=== PATIENT | male | born 2000 | race Caucasian/White ===

== ENCOUNTER → 2023-12-04 08:32 | Outpatient (CLI) | payer OTHER, SELFPAY ==
--- NOTE | 2023-12-04 | DI.MRI.S_ITS ---
PROCEDURE: MR WRIST LT WO CON INDICATIONS: PAIN IN LEFT WRIST TECHNIQUE: Noncontrast coronal proton density fast spin echo and T2 fast spin echo with fat saturation; coronal 3-D gradient echo, axial T1 spin echo and T2 fast spin echo with fat saturation, sagittal T1 spin echo through the wrist. COMPARISON: None. FINDINGS: Image quality: Excellent. Bones and cartilage: The carpal bones are normally aligned. No bone marrow contusions or fractures. No evidence for avascular necrosis. Overlying cartilage surfaces appear normal. Carpal ligaments: The scapholunate and lunotriquetral ligaments appear intact. In the absence of intra-articular contrast, the extrinsic carpal ligaments are not well identified. On sagittal images, the pisohamate ligament appears intact. Triangular fibrocartilage complex: There is large area of increased signal within the central disc (series 7, image 32), which may represent central disc degeneration versus contusion. No tear of the central disc. The ulnar styloid and the fovea attachment is unremarkable. Tendons and soft tissues: The carpal tunnel structures appear normal, including the median nerve. The ulnar nerve appears normal within Guyon's canal. All six extensor tendon compartments demonstrate normal morphology, without pathologic tendon sheath fluid. There is a cystic lesion dorsal to the scapholunate interval, and deep to the extensor tendons, measuring 8 mm, likely representing a ganglion cyst. IMPRESSION: 1. 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 2. 8 mm ganglion cyst dorsal to the scapholunate interval. Limited evaluation given noncontrast study. Dictated by: Twila Jacinto M.D. on 12/04/2023 at 10:20 Approved by: Twila Jacinto M.D. on 12/04/2023 at 10:31
== END ==
DX: M67.432 Ganglion, left wrist (principal); M25.532 Pain in left wrist
CPT/HCPCS: 73221